=== PATIENT | male | born 1975 | race Caucasian/White ===

== ENCOUNTER 2020-06-18 06:54 | Outpatient (NON) | payer OTHER, SELFPAY ==
[2020-06-19 13:30] LABS: SARS-CoV-2 RNA PCR Positive
== END 2020-06-18 06:55 ==
LOC: ANHCOVIDDT 07:06
PROVIDERS: PCP Internal Medicine; Visit Provider Nurse Practitioner
DX: U07.1 COVID-19 (principal)
CPT/HCPCS: 87635; C9803; U0003

== ENCOUNTER 2021-04-28 01:21 | Day surgery (SDC) | payer OTHER, SELFPAY ==
[2021-04-16 15:58] VITALS: BMI 27.8
[2021-04-28 11:24] VITALS: BP 143/85; PULSE 60; RESP 16; TEMP 36.2; O2SAT 98
[2021-04-28] MEDS: LACTATED RINGERS 1,000 ML 150 ML IV CONT (11:26)
--- NOTE | 2021-04-28 11:31 | PM.HPGS ---
History of Present Illness History of Present Illness Consent: Risks, benefits, and alternatives have been discussed and questions answered. Patient agrees to proceed with procedure. Chief complaint: neoplasm screening Narrative: Alok Velasquez is a 45 year old male referred for colon cancer screening Review of Systems Review of Systems: All systems reviewed & are unremarkable except as noted in HPI and below PMFSH Past Medical History Medical History Elevated bilirubin Hernia Hyperlipidemia Family History Family History Father Hypertension Pacemaker Alcoholism Mother Hypertension Lupus Social History Social History Smoking status: Never smoker Alcohol intake: current Alcohol use details: occasional Living arrangements: with family Spiritual care concerns: No Meds Home Medications and Allergies Home Medications Medication Instructions Recorded Confirmed Type No Home Medications 04/16/21 04/16/21 History Allergies Allergy/AdvReac Type Severity Reaction Status Date / Time hydrocodone Allergy Mild Unknown Verified 04/28/21 11:21 terbinafine AdvReac Severe Acute Verified 04/28/21 11:21 generalized exanthematous Vital Signs Vital Signs - 24 hr 04/28/21 11:24 Temperature 36.2 C L Pulse Rate 60 Respiratory Rate 16 Blood Pressure 143/85 H Pulse Oximetry 98 Exam Resp: Auscultation: clear to auscultation bilaterally Cardio: Rate: regular rate Rhythm: regular rhythm GI: GI Palp: Yes Soft to palpation and No Tenderness to palpation present (GI) Assessment and Plan Assessment and plan (1) Screening for colon cancer: Code(s): Z12.11 - Encounter for screening for malignant neoplasm of colon Status: Acute Assessment and Plan: Colonoscopy with possible biopsy or polypectomy or cautery or injection of substances.
--- NOTE | 2021-04-28 11:52 | P.PNAN_ITS ---
Anes - Initial Pre Proc Eval Procedure: Operation Date: 04/28/21 12:45 Proposed Procedures p Screening Colonoscopy - Miguel A Overton MD Date/Time: 04/28/21 11:52 Surgeon: Miguel A Overton MD Pre Op Diagnosis: neoplasm screening Patient Data Age: 45 Gender: M Height: 1.83 m Weight: 91.4 kg Last Vital Signs Temp 36.2 C L 04/28/21 11:24 Pulse 60 04/28/21 11:24 Resp 16 04/28/21 11:24 BP 143/85 H 04/28/21 11:24 Pulse Ox 98 04/28/21 11:24 Allergies Allergy/AdvReac Type Severity Reaction Status Date / Time hydrocodone Allergy Mild Unknown Verified 04/28/21 11:21 terbinafine AdvReac Severe Acute Verified 04/28/21 11:21 generalized exanthematous Home Medications Medication Instructions Recorded Confirmed Type No Home Medications 04/16/21 04/16/21 History Patient hx anesthesia problems: none Family hx anesthesia problems: none Results Review: All pre-operative results and documents have been reviewed as part of the pre-operative evaluation. [facility] Past Medical History Medical History Elevated bilirubin Hernia Hyperlipidemia Family History Family History Father Hypertension Pacemaker Alcoholism Mother Hypertension Lupus Social History Social History Smoking status: Never smoker Alcohol intake: current Alcohol use details: occasional Living arrangements: with family Spiritual care concerns: No Anes - Eval Final PreProcedure Day of Procedure 04/28/21 11:52 Patient weight: overweight Heart: regular rate and rhythm Lungs: clear to auscultation Airway: Mallampati scale class II Neurological: alert and oriented Last oral intake: >/= 8 hours ASA classification: II Emergent: no Anesthetic plan: proceed Anesthesia type and monitoring: general GIVS and standard monitoring Results Review: All pre-operative results and documents have been reviewed as part of the pre-operative evaluation. Informed Consent: The patient's anesthetic plan and its attendant risks and benefits were discussed with the patient/family/POA. Questions were solicited and answers provided to the satisfaction of the patient/family/POA.
[2021-04-28 12:38] VITALS: BP 127/79; PULSE 68; RESP 22; O2SAT 100
[2021-04-28 12:48] VITALS: BP 127/84; PULSE 51; RESP 16; O2SAT 100
[2021-04-28 12:58] VITALS: BP 126/82; PULSE 52; RESP 17; O2SAT 100
== END 2021-04-28 13:07 | disposition home or self-care (01) ==
PROVIDERS: PCP Internal Medicine; Visit Provider Internal Medicine Gastroenterology
PROC: 0DJD8ZZ Inspection of Lower Intestinal Tract, Via Natural or Artificial Opening Endoscopic (ICD-10-PCS; CPT 45378; principal; 2021-04-28 12:45)
DX: Z12.11 Encounter for screening for malignant neoplasm of colon (principal); E78.5 Hyperlipidemia, unspecified
CPT/HCPCS: 45378; J2001; J2704; J7120